=== PATIENT | female | born 1975 | race African-American/Black ===

== ENCOUNTER 2019-02-28 15:42 | Emergency (ER) | payer OTHER ==
[~2019-02-28] VITALS: Ht 162.6 cm; Wt 79.4 kg
[2019-02-28 15:59] VITALS: BP 127/77
[2019-02-28] MEDS ORDERED: SYNTHROID150 MCG PO (16:04)
[2019-02-28] MEDS ORDERED: ELIQUIS5 MG PO (16:04)
[2019-02-28] MEDS ORDERED: IRON325 PO (16:05)
[2019-02-28] MEDS ORDERED: ECZEMA CREAM (16:06)
[2019-02-28] MEDS ORDERED: NORCO 5-325 TA1 EACH PO (16:43)
== END 2019-02-28 16:54 | disposition home or self-care (01) ==
LOC: M.ERS 15:42
DX: S80.01XA Contusion of right knee, initial encounter (principal); I50.9 Heart failure, unspecified; Z86.711 Personal history of pulmonary embolism; Z90.710 Acquired absence of both cervix and uterus; V86.99XA Unspecified occupant of other special all-terrain or other off-road motor vehicle injured in nontraffic accident, initial encounter; Y93.89 Activity, other specified; Y92.89 Other specified places as the place of occurrence of the external cause; Y99.8 Other external cause status

== ENCOUNTER → 2019-12-22 | Outpatient (CLI) | payer OTHER ==
[~2019-12-22] MED LIST: ECZEMA CREAM; ELIQUIS5 MG PO; IRON325 PO; NORCO 5-325 TA1 EACH PO; SYNTHROID150 MCG PO
== END ==
LOC: M.RAD 11-08 09:30
DX: Z12.31 Encounter for screening mammogram for malignant neoplasm of breast (principal)

== ENCOUNTER 2020-02-25 09:38 | Emergency (ER) | payer OTHER ==
[~2020-02-25] VITALS: Ht 162.6 cm; Wt 86.2 kg
[2020-02-25 10:52] LABS: CALCIUM 8.3 mg/dL (8.5-10.1); POTASSIUM 4.1 mmol/L (3.5-5.1)
[2020-02-25 11:25] VITALS: BP 119/70
== END 2020-02-25 11:25 | disposition home or self-care (01) ==
LOC: M.ERS 09:38
PROVIDERS: Emergency Medicine Emergency Medical Services
DX: S93.492A Sprain of other ligament of left ankle, initial encounter (principal); I50.9 Heart failure, unspecified; Z86.718 Personal history of other venous thrombosis and embolism; Z90.710 Acquired absence of both cervix and uterus; X58.XXXA Exposure to other specified factors, initial encounter; Y93.89 Activity, other specified; Y92.89 Other specified places as the place of occurrence of the external cause; Y99.8 Other external cause status